=== PATIENT | female | born 1970 | race Asian ===

== ENCOUNTER 2023-08-13 16:17 | Inpatient (IN) | payer MEDICAID ==
[~2023-08-13] VITALS: Ht 165.1 cm; Wt 76.0 kg
[2023-08-13] MEDS ORDERED: SODIUM CHLORIDE 0.9% 100 ML ONE (16:41)
[2023-08-13] MEDS ORDERED: IOHEXOL 350 MG/ML 100 ML VIAL ONE (16:41)
[2023-08-13 16:52] LABS: BASOPHILS % (AUTO) 0.5 % (0.0-2.0); EOSINOPHILS % (AUTO) 0.8 % (1.0-6.0); HEMATOCRIT 44.3 % (36-46); HEMOGLOBIN 14.9 g/dL (12.0-16.0); LYMPHOCYTES # (AUTO) 1.4 K/uL (1.0-4.8); MEAN CORPUSCULAR HEMOGLOBIN 30.1 pg (26.0-34.0); MEAN CORPUSCULAR HGB CONC 33.6 G/dL (31.0-37.0); MEAN CORPUSCULAR VOLUME 90 fL (80-100); MONOCYTES # (AUTO) 0.5 K/uL (0.1-1.0); MONOCYTES % (AUTO) 6.8 % (2.0-9.0); NEUTROPHILS # (AUTO) 4.8 K/uL (1.8-7.7); NEUTROPHILS % (AUTO) 70.9 % (40.0-70.0); PLATELET COUNT (AUTO) 294 K/uL (150-450); RED BLOOD CELL COUNT(AUTO) 4.95 MIL/uL (4.00-5.20); RED CELL DISTRIBUTION WIDTH 13.1 % (11.5-14.5); WHITE BLOOD COUNT (AUTO) 6.7 K/uL (4.5-11.0)
[2023-08-13 16:58] LABS: CALCIUM, TOTAL 9.4 mg/dL (8.8-10.5); CREATININE 1.12 mg/dL (0.60-1.30); POTASSIUM 3.5 mmol/L (3.5-5.1)
[2023-08-13 17:00] LABS: INR 0.9 (0.9-1.1); PROTHROMBIN TIME 9.9 SEC (9.4-11.6)
[2023-08-13 17:03] LABS: ALBUMIN 4.1 g/dL (3.4-5.0); BILIRUBIN,TOTAL 0.5 mg/dL (0.1-1.0); TOTAL PROTEIN, SERUM 8.1 g/dL (6.4-8.2)
[2023-08-13 17:39] LABS: APPEARANCE,URINE CLEAR (CLEAR); BILIRUBIN,URINE NEGATIVE (NEGATIVE); COLOR,URINE LIGHT YELLOW (YELLOW); GLUCOSE, URINE (UA) >=1000 mg/dL (NEGATIVE); KETONES,URINE NEGATIVE (NEGATIVE); LEUKOCYTE ESTERASE ,URINE TRACE (NEGATIVE); NITRATE,URINE NEGATIVE (NEGATIVE); OCCULT BLOOD,URINE NEGATIVE (NEGATIVE); PH,URINE 6.5 (5.0-8.0); PROTEIN,URINE NEGATIVE (NEGATIVE); SPECIFIC GRAVITIY, URINE 1.018 (1.003-1.030); UROBILINOGEN,URINE <=1.0 mg/dL (<=1.0)
[2023-08-13 17:55] LABS: RBC,URINE 0-2 /HPF (0-2); SQUAMOUS EPITHELIAL CELL,UR Few /LPF (None Seen)
[2023-08-13 17:56] LABS: BACTERIA,URINE Rare /HPF (None Seen)
[2023-08-13] MEDS ORDERED: DEXTROSE 50%-WATER 25 GM/50 ML SYRINGE IVP PRN (19:30)
[2023-08-13] MEDS ORDERED: GADOTERATE MEGLUMINE 10 MMOL/20 ML VIAL IVP ONE (19:31)
[2023-08-13 19:53] LABS: C-REACTIVE PROTEIN QUANT 0.19 mg/dL (0.00-0.30); MAGNESIUM 2.2 mg/dL (1.80-2.40); PHOSPHORUS 2.4 mg/dL (2.5-4.9)
[2023-08-13 20:14] LABS: THYROID STIMULATING HORMONE 1.97 uIU/mL (0.36-3.74)
[2023-08-13 20:14] LABS: COVID AG,FIA SOURCE NASAL SWAB
[2023-08-13 20:44] LABS: SARS-COV2 (COVID) ANTIGEN,FIA Negative (Negative)
[2023-08-13] MEDS: LABETALOL HCL 5 MG/ML 20 ML VIAL IVP ONE (20:52)
[2023-08-13] MEDS: DOCUSATE SODIUM 100 MG CAPSULE PO SCH (21:00)
[2023-08-13] MEDS: NITROGLYCERIN 2% (1 GM=INCH) OINTMENT PACKET TP PRN (22:25)
[2023-08-13] MEDS: HydrALAZINE HCL 20 MG/ML VIAL IVP PRN (22:26)
[2023-08-13 23:36] VITALS: BP 129/74; PULSE 99; RESP 18; TEMP 97.7
[2023-08-13] MEDS: ACETAMINOPHEN 325 MG TABLET PO PRN (23:45)
[2023-08-13] MEDS: HEPARIN SODIUM,PORCINE 5,000 UNITS/ML VIAL SQ SCH (23:46)
[2023-08-13] MEDS: INSULIN GLARGINE,HUM.REC.ANLOG 100 UNITS/ML SQ SCH (23:58)
[2023-08-13] MEDS: INSULIN LISPRO 100 UNITS/ML SQ PRN (23:59)
[2023-08-14] MEDS: ONDANSETRON HCL 4 MG/2 ML VIAL IVP PRN (00:25)
[2023-08-14 05:20] VITALS: BP 139/72; PULSE 109; RESP 18; TEMP 97.9
[2023-08-14 07:26] LABS: BASOPHILS % (AUTO) 0.4 % (0.0-2.0); EOSINOPHILS % (AUTO) 0.1 % (1.0-6.0); HEMOGLOBIN 14.6 g/dL (12.0-16.0); LYMPHOCYTES # (AUTO) 0.9 K/uL (1.0-4.8); LYMPHOCYTES % (AUTO) 9.8 % (22.0-44.0); MEAN CORPUSCULAR HEMOGLOBIN 29.8 pg (26.0-34.0); MEAN CORPUSCULAR HGB CONC 33.1 G/dL (31.0-37.0); MEAN CORPUSCULAR VOLUME 90 fL (80-100); MONOCYTES # (AUTO) 0.4 K/uL (0.1-1.0); MONOCYTES % (AUTO) 4.4 % (2.0-9.0); NEUTROPHILS # (AUTO) 8.2 K/uL (1.8-7.7); PLATELET COUNT (AUTO) 303 K/uL (150-450); RED BLOOD CELL COUNT(AUTO) 4.88 MIL/uL (4.00-5.20); RED CELL DISTRIBUTION WIDTH 13.1 % (11.5-14.5); WHITE BLOOD COUNT (AUTO) 9.6 K/uL (4.5-11.0)
[2023-08-14 07:36] LABS: NEUTROPHILS % (AUTO) 85.3 % (40.0-70.0)
[2023-08-14 07:48] LABS: ANION GAP 13 mmol/L (8-16); CALCIUM, TOTAL 9.4 mg/dL (8.8-10.5); CARBON DIOXIDE 25 mmol/L (22-29); CHLORIDE 101 mmol/L (98-107); CREATININE 0.92 mg/dL (0.60-1.30); GLOMERULAR FILTR. RATE CALC > 60 mL/min (>60); GLUCOSE,RANDOM 156 mg/dL (70-110); SODIUM SERUM 138 mmol/L (136-145); UREA NITROGEN, BLOOD 13 mg/dL (7-18)
[2023-08-14 07:59] VITALS: BP 143/74; PULSE 97; RESP 18; TEMP 97.8
[2023-08-14 08:15] LABS: TROPONIN I-HIGH SENSITIVITY 9 ng/L (<51)
[2023-08-14 08:16] LABS: CHOL/HDL RATIO 2.6 (3.9-5.7); CHOLESTEROL 201 mg/dL (131-200); HDL CHOLESTEROL 76 mg/dL (40-60); LDL CHOL (CALC.) 103 mg/dL (0-130); TRIGLYCERIDES 111 mg/dL (15-150)
[2023-08-14] MEDS: ATORVASTATIN CALCIUM 20 MG TABLET PO SCH (10:21)
[2023-08-14] MEDS: AmLODIPine BESYLATE 5 MG TABLET PO SCH (10:21)
[2023-08-14 11:34] VITALS: BP 145/84; PULSE 90; RESP 18; TEMP 98.3
[2023-08-14 12:27] LABS: GLUCOMETER DEV NAME(LOC) 5S.2C; GLUCOSE,POINT OF CARE 151 MG/DL (70-110)
[2023-08-14 12:27] LABS: GLUCOMETER DEV NAME(LOC) 5N.2C; GLUCOSE,POINT OF CARE 166 MG/DL (70-110)
[2023-08-14 16:23] VITALS: BP 157/91; PULSE 78; RESP 18; TEMP 98
[2023-08-14] MEDS: CLOBETASOL 0.05% 15 GM OINTMENT TP SCH (17:05)
[2023-08-14 19:51] VITALS: BP 145/86; PULSE 78; RESP 18; TEMP 97.8
[2023-08-14] MEDS: INSULIN GLARGINE,HUM.REC.ANLOG 100 UNITS/ML SQ SCH (20:57)
[2023-08-14] MEDS ORDERED: INSULIN GLARGINE,HUM.REC.ANLOG 100 UNITS/ML SQ SCH (21:00)
[2023-08-15 01:09] VITALS: BP 129/73; PULSE 85; RESP 18; TEMP 97.6
[2023-08-15 05:56] VITALS: BP 138/81; PULSE 75; RESP 18; TEMP 97.5
[2023-08-15 08:10] VITALS: BP 149/89; PULSE 72; RESP 18; TEMP 97.9
[2023-08-15] MEDS: ATORVASTATIN CALCIUM 20 MG TABLET PO SCH (08:31)
[2023-08-15] MEDS: AmLODIPine BESYLATE 10 MG TABLET PO SCH (08:31)
[2023-08-15] MEDS ORDERED: AMLO-258 PO (10:42)
[2023-08-15] MEDS ORDERED: METF-1211 PO (10:43)
[2023-08-15 12:59] VITALS: BP 137/81; PULSE 87; RESP 18; TEMP 98.2
[2023-08-15 23:07] LABS: GLUCOMETER DEV NAME(LOC) 5S.1B; GLUCOSE,POINT OF CARE 224 MG/DL (70-110)
[2023-08-15 23:08] LABS: GLUCOMETER DEV NAME(LOC) 5S.1B; GLUCOSE,POINT OF CARE 129 MG/DL (70-110)
[2023-08-15 23:08] LABS: GLUCOMETER DEV NAME(LOC) 5S.1B; GLUCOSE,POINT OF CARE 134 MG/DL (70-110)
[2023-08-15 23:08] LABS: GLUCOMETER DEV NAME(LOC) 5S.1B; GLUCOSE,POINT OF CARE 143 MG/DL (70-110)
[2023-08-16 01:26] LABS: GLUCOMETER DEV NAME(LOC) 5N.1D; GLUCOSE,POINT OF CARE 117 MG/DL (70-110)
[2023-08-21 09:07] LABS: ANA,IFA (TITER & PATTERN) Positive
== END 2023-08-15 13:30 | disposition home or self-care (01) | DRG 469 ==
LOC: EMS 16:26 → 5S 18:54
PROVIDERS: ADMIT Internal Medicine; ATTEND Internal Medicine
DX: N17.9 Acute kidney failure, unspecified (principal); G93.41 Metabolic encephalopathy; R47.01 Aphasia; I16.0 Hypertensive urgency; Z20.822 Contact with and (suspected) exposure to COVID-19; E11.65 Type 2 diabetes mellitus with hyperglycemia; I10 Essential (primary) hypertension; Z83.3 Family history of diabetes mellitus; Z79.4 Long term (current) use of insulin
CPT/HCPCS: 70496; 70498; 70553; 80048; 80053; 80061; 81001; 82140; 82550; 82962; 83036; 83735; 84100; 84443; 84484; 85025; 85610; 85651; 86038; 86140; 92523; 93005; 93306; 93880; 95816; 99285; J0360; J1644; J1815; J2405; J3490; J7050; Q9967